=== PATIENT | male | born 1995 | race African-American/Black ===

== ENCOUNTER → 2017-09-12 20:36 | Emergency (ER) | payer BC ==
[2017-09-12 20:55] VITALS: BP 124/83
--- NOTE | 2017-09-12 22:57 | ED ---
Mar Vazquez Alfonso, scribed for Sanjay Peck MD on 09/12/17 at 2140 . Psychiatric Complaint - HPI Summary HPI Summary: This patient is a 22 year old M presenting to [facility] accompanied by two friends with a chief complaint of anxiety and depression since a while ago. The patient rates the pain 4/10 in severity. Symptoms aggravated by recent stress ( grandfather illness). Symptoms alleviated by nothing. Patient reports panic attacks and insomnia. Friend reports strong emotion, and minor irrational thoughts. Patient denies loss of appetite, difficulty concentration, energy loss , hallucinations, SI, and HI. - History Of Current Complaint Chief Complaint: EDMentalHealth Time Seen by Provider: 09/12/17 20:55 Hx Obtained From: Patient Onset/Duration: Gradual Onset, Still Present Timing: Constant Character: Depressed, Anxious Aggravating Factor(s): Recent Stress Alleviating Factor(s): Nothing Associated Signs And Symptoms: Positive: Sleep Disturbance. Negative: Hallucinating Has Suicidal: Denies: Thoughts Has Homicidal: Denies: Thoughts - Allergies/Home Medications Allergies/Adverse Reactions: Allergies Allergy/AdvReac Type Severity Reaction Status Date / Time No Known Allergies Allergy Verified 09/12/17 20:55 PMH/Surg Hx/FS Hx/Imm Hx Respiratory History: Reports: Hx Asthma - A CHILD Opthamlomology History: Denies: Hx Legally Blind EENT History: Denies: Hx Deafness Infectious Disease History: No Infectious Disease History: Denies: Traveled Outside the [place] in Last 30 Days - Family History Known Family History: Positive: Hypertension - Social History Alcohol Use: Occasionally Hx Substance Use: No Substance Use Type: Reports: None Hx Tobacco Use: Yes Smoking Status (MU): Former Smoker Review of Systems Negative: Fever Positive: Other - Negative loss of appetite Neurological: Other - panic attacks, insomnia, strong emotion, and minor irrational thoughts Positive: Anxious, Depressed, Other - Negative difficulty concentration, energy loss, hallucinations, SI, and HI. All Other Systems Reviewed And Are Negative: Yes Physical Exam - Summary Physical Exam Summary: General: well-appearing, no pain distress Skin: warm, color reflects adequate perfusion, dry Head: normal Eyes: EOMI, CHARLEE ENT: normal Neck: supple, nontender Respiratory: CTA, breath sounds present Cardiovascular: RRR Abdomen: soft, nontender Bowel: present Musculoskeletal: normal, strength/ROM intact Neurological: normal, sensory/motor intact, A&O x3 Psychological: affect/mood appropriate Triage Information Reviewed: Yes Vital Signs On Initial Exam: Initial Vitals Temp Pulse Resp BP Pulse Ox 97.8 F 95 18 124/83 98 09/12/17 20:47 09/12/17 20:47 09/12/17 20:47 09/12/17 20:47 09/12/17 20:47 Vital Signs Reviewed: Yes - [place] Coma Scale Coma Scale Total: 15 Diagnostics - Vital Signs Vital Signs Temp Pulse Resp BP Pulse Ox 09/12/17 20:47 97.8 F 95 18 124/83 98 - Laboratory Lab Statement: Any lab studies that have been ordered have been reviewed, and results considered in the medical decision making process. Course/Dx - Course Course Of Treatment: NO SI/HI. NO HALLUCINATIONS. HAS SUPPORT WITH FRIENDS. NO MHE REQUIRED. GIVEN INFORMATION FOR [facility]. F/U PMD/TCMH; RETURN IF WORSE. - Differential Dx/Clinical Impression Provider Diagnosis: Anxiety, Depression Discharge - Discharge Plan Condition: Stable Disposition: HOME Patient Education Materials: Depression (ED), Anxiety (ED) Referrals: [facility] [Outside] No Primary Care Phys,NOPCP [Primary Care Provider] - Additional Instructions: FOLLOW UP WITH YOUR PRIMARY CARE DOCTOR AND [facility]. [facility], [facility] HAS OPEN INTERVIEWS MONDAY THROUGH MONDAY, 9AM TILL 2PM. RETURN TO THE EMERGENCY DEPARTMENT FOR ANY WORSENING OF YOUR CONDITION OR QUESTIONS OR CONCERNS. The documentation as recorded by the Mar arrieta Alfonso accurately reflects the service I personally performed and the decisions made by me, Sanjay Peck MD.
== END | disposition home or self-care (01) ==
LOC: ED 20:36
DX: F41.9 Anxiety disorder, unspecified (principal); F32.9 Major depressive disorder, single episode, unspecified; Z87.891 Personal history of nicotine dependence
CPT/HCPCS: 99282

== ENCOUNTER 2019-01-08 18:22 | Emergency (ER) | payer BC ==
[2019-01-08 19:03] VITALS: BP 145/91
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
--- NOTE | 2019-01-09 08:00 | UC ---
- EKG/XRAY/CT XRAY: Nasal Bones - Negative for fracture Course/Dx - Diagnoses Provider Diagnoses: Nose injury Discharge - Sign-Out/Discharge Documenting (check all that apply): Post-Discharge Follow Up All imaging exams completed and their final reports reviewed: Yes - Discharge Plan Condition: Stable Disposition: HOME Referrals: No Primary Care Phys,NOPCP [Primary Care Provider] - Additional Instructions: If you develop a fever, shortness of breath, chest pain, new or worsening symptoms - please call your PCP or go to the ED. Your blood pressure was high at todays visit. Please see your primary provider within 4 weeks for recheck and re-evaluation. Apply ice to your nose to reduce pain and swelling - Billing Disposition and Condition Condition: STABLE Disposition: Home
== END 2019-01-08 19:17 | disposition home or self-care (01) ==
LOC: UCEAST 18:22
DX: S09.92XA Unspecified injury of nose, initial encounter (principal); Y92.9 Unspecified place or not applicable; F17.200 Nicotine dependence, unspecified, uncomplicated; Z88.2 Allergy status to sulfonamides; R03.0 Elevated blood-pressure reading, without diagnosis of hypertension; V49.88XA Car occupant (driver) (passenger) injured in other specified transport accidents, initial encounter
CPT/HCPCS: 70160; 99211; G0463